=== PATIENT | female | born 1980 ===

== ENCOUNTER 2018-03-01 18:57 | Emergency (ER) | payer SELFPAY ==
--- NOTE | 2018-03-01 19:56 | C.PDOC ---
History Of Present Illness 37 year old female, with no significant past medical history, presents to the ED for evaluation of left-sided chest pain and pressure associated with shortness of breath that has been intermittent for 3 days. Patient states her pain is worse with movement of her left upper extremity and with respirations. Patient has not taken any medicine for pain. She has not experienced similar symptoms in the past. Of note, patient states she had gestational hypertension and used to take amlodipine 6 years ago. Today, her took her blood pressure and found it to be high. Patient took one tablet of amlodipine today, which was from six years ago. Patient denies fever, chills, cough, nausea, vomiting, syncope, recent travel. She denies family history of early MT or CAD. Patient is currently on her menstrual period, which began a few days ago. Time Seen by Provider: 03/01/18 19:49 Chief Complaint (Nursing): Chest Pain History Per: Patient History/Exam Limitations: no limitations Onset/Duration Of Symptoms: Days (3), Intermittent Episodes Current Symptoms Are (Timing): Still Present Quality: "Pain" Associated Symptoms: denies: Nausea Past Medical History Reviewed: Historical Data, Nursing Documentation, Vital Signs - Medical History PMH: HTN Surgical History: No Surg Hx Family History: States: Unknown Family Hx - Social History Hx Alcohol Use: No Hx Substance Use: No Review Of Systems Constitutional: Negative for: Fever, Chills Cardiovascular: Positive for: Chest Pain Respiratory: Positive for: Shortness of Breath. Negative for: Cough Gastrointestinal: Negative for: Nausea, Vomiting Neurological: Negative for: Other (syncope ) Physical Exam - Physical Exam Appears: Non-toxic, No Acute Distress Skin: Normal Color, Warm, Dry Head: Atraumatic, Normacephalic Eye(s): bilateral: Normal Inspection Oral Mucosa: Moist Neck: Supple Chest: Symmetrical, No Deformity, Tenderness (along left costochondral junction ) Cardiovascular: Rhythm Regular, No Murmur Respiratory: Normal Breath Sounds, No Rales, No Rhonchi, No Wheezing Extremity: Normal ROM, Capillary Refill (less than 2 seconds ), No Other (edema ) Neurological/Psych: Oriented x3, Normal Speech, Normal Cognition ED Course And Treatment - Laboratory Results Result Diagrams: 03/01/18 21:08 03/01/18 21:48 ECG: Interpreted By Me, Viewed By Me ECG Rhythm: Sinus Rhythm Interpretation Of ECG: Normal Sinus Rhythm at rate 64bpm. Normal intervals, normal axis. No ST elevations. Nonspecific T wave changes. Rate From EC O2 Sat by Pulse Oximetry: 98 (on RA) Pulse Ox Interpretation: Normal - Other Rad CXR X-Ray: Viewed By Me, Read By Radiologist Interpretation: EXAM: CR Chest, 2 View. CLINICAL HISTORY: Chest Pain. COMPARISON: None provided. FINDINGS: LUNGS: The lungs appear clear. PLEURAL SPACES: No evidence of pleural effusion or pneumothorax. MEDIASTINUM: Cardiac size and mediastinal contours within normal limits. BONES: No aggressive appearing osseous lesion seen. IMPRESSION: No acute cardiopulmonary pathology is evident. Medical Decision Making Medical Decision Making: Progress: Bloodwork, urinalysis, CXR, EKG ordered and reviewed. Patient is PERC negative. Disposition Counseled Patient/Family Regarding: Studies Performed, Diagnosis, Need For Followup - Disposition Referrals: [facility] [Outside] [facility] [Outside] Disposition: HOME/ ROUTINE Disposition Time: 23:48 Condition: STABLE Additional Instructions: BASSEM WOOD, thank you for letting us take care of you today. Your provider was Ashlee Garcia MD and you were treated for CHEST PAIN. The emergency medical care you received today was directed at your acute symptoms. If you were prescribed any medication, please fill it and take as directed. It may take several days for your symptoms to resolve. Return to the Emergency Department if your symptoms worsen, do not improve, or if you have any other problems. Please contact your doctor or call one of the physicians/clinics you have been referred to that are listed on the Patient Visit Information form that is included in your discharge packet. Bring any paperwork you were given at discharge with you along with any medications you are taking to your follow up visit. Our treatment cannot replace ongoing medical care by a primary care provider outside of the emergency department. Thank you for allowing the [facility] team to be part of your care today. Prescriptions: Naproxen [Naprosyn] 500 mg PO BID #30 tab Instructions: Costochondritis, Chest Pain (DC) Forms: [employer] ([place]), General Discharge Instructions - POA Present On Arrival: None - Clinical Impression Clinical Impression: Chest pain, Costochondritis, acute - Scribe Statement The provider has reviewed the documentation as recorded by the Scribe (Afsaneh Cazares) Provider Attestation: All medical record entries made by the Scribe were at my direction and personally dictated by me. I have reviewed the chart and agree that the record accurately reflects my personal performance of the history, physical exam, medical decision making, and the department course for this patient. I have also personally directed, reviewed, and agree with the discharge instructions and disposition.
[2018-03-01 21:29] LABS: BASO # 0.1 K/uL (0.0-0.2); EOS # 0.2 K/uL (0.0-0.7); EOS % 1.9 % (0.0-4.0); HEMOGLOBIN 15.6 g/dL (11.0-16.0); LYMPH # 2.8 K/uL (1.0-4.3); LYMPH % 23.5 % (20.0-40.0); MEAN CELL VOLUME 84.3 fL (81.0-99.0); MEAN CORPUSCULAR HEMOGLOBIN 28.4 pg (27.0-31.0); MEAN CORPUSCULAR HGB CONC 33.7 g/dL (33.0-37.0); MEAN PLATELET VOLUME 8.4 fL (7.2-11.7); MONO # 0.4 K/uL (0.0-0.8); MONO % 3.5 % (0.0-10.0); NEUT # 8.2 K/uL (1.8-7.0); NEUT % 70.1 % (50.0-75.0); NRBC % 0.4 % (0.0-2.0); RBC 5.5 Mil/uL (3.80-5.20); WHITE BLOOD COUNT 11.8 K/uL (4.8-10.8)
[2018-03-01 22:07] LABS: ALB/GLOB RATIO 1.3 (1.0-2.1); ALBUMIN 5.1 g/dL (3.5-5.0); ALT/SGPT 39 U/L (9-52); AST/SGOT 39 U/L (14-36); BLOOD UREA NITROGEN 12 mg/dL (7-17); CALCIUM 9.2 mg/dl (8.6-10.4); GFR NON-AFRICAN AMERICAN > 60
[2018-03-01] MEDS ORDERED: Naproxen 275 mg Tab PO STA (23:27)
[2018-03-01] MEDS ORDERED: Naproxen 550 mg Tab PO ONE ×2 (23:38→23:40)
[2018-03-01 23:45] VITALS: BP 130/92; PULSE 64; RESP 16; TEMP 98.7
[2018-03-01 23:51] VITALS: O2SAT 98
--- NOTE | 2018-03-02 07:43 | RAD ---
Chest x-ray two views HISTORY: Chest pain. COMPARISON: None available. FINDINGS: Mild venous congestion. Mild patchy increased markings at the lung bases. Small nodular density at the left lung base likely represents prominent vessel on end. Tortuous ectatic aorta. No aortic atherosclerotic calcification noted. Top normal heart size. Degenerative changes in the spine. Impression: Mild venous congestion. Mild patchy increased markings at the lung bases. Small nodular density at the left lung base likely represents prominent vessel on end. Tortuous ectatic aorta. No aortic atherosclerotic calcification noted. Top normal heart size. Degenerative changes in the spine.
--- NOTE | 2018-03-03 23:05 | CARD ---
APPROVED REPORT Date of service: 03/01/2018 EKG Measurement Heart [id number] <Conclusion> Normal sinus rhythm Septal infarct, age undetermined Abnormal ECG
== END 2018-03-01 23:57 | disposition home or self-care (01) ==
LOC: C.ER 18:57
DX: M94.0 Chondrocostal junction syndrome [Tietze] (principal); R07.9 Chest pain, unspecified